=== PATIENT | female | born 2000 | race Caucasian/White ===

== ENCOUNTER 2019-07-06 16:05 | Emergency (ER) | payer BC, OTHER ==
[~2019-07-06] VITALS: Ht 162.6 cm; Wt 60.9 kg
[2019-07-06 16:13] VITALS: BP 120/83
--- NOTE | 2019-07-06 16:41 | PHYS DOC ---
Past History Past Medical History: No Pertinent History (LIZZIE MANCUSO DO) Past Surgical History: No Surgical History (LIZZIE MANCUSO DO) Smoking: Non-smoker Alcohol Use: None Drug Use: None (LIZZIE MANCUSO DO) General Adult EDM: Chief Complaint: PAIN ON URINATION HPI: HPI: 18-year-old female presents with dysuria and increased urinary frequency. Patient has a history of frequent urinary tract infections. She has been having a discomfort for the last nearly 2 weeks. She is also had some intermittent low back pain. It is painful every time she urinates. She denies vaginal discharge or odor. (LIZZIE MANCUSO DO) Review of Systems: Review of Systems: Constitutional: Denies fever or chills Eyes: Denies change in visual acuity HENT: Denies nasal congestion or sore throat Respiratory: Denies cough or shortness of breath Cardiovascular: Denies chest pain or edema GI: Denies abdominal pain, nausea, vomiting, bloody stools or diarrhea : Dysuria Musculoskeletal: Denies back pain or joint pain Integument: Denies rash Neurologic: Denies headache, focal weakness or sensory changes Endocrine: Denies polyuria or polydipsia Lymphatic: Denies swollen glands Psychiatric: Denies depression or anxiety (LIZZIE MANCUSO DO) Heart Score: Risk Factors: Risk Factors: DM, Current or recent (<one month) smoker, HTN, HLP, family history of CAD, obesity. Risk Scores: Score 0 - 3: 2.5% MACE over next 6 weeks - Discharge Home Score 4 - 6: 20.3% MACE over next 6 weeks - Admit for Clinical Observation Score 7 - 10: 72.7% MACE over next 6 weeks - Early Invasive Strategies (LIZZIE MANCUSO DO) Allergies: Allergies: Allergies Coded Allergies Type Severity Reaction Last Updated Verified No Known Drug Allergies 07/01/13 No (LIZZIE MANCUSO DO) Physical Exam: PE: Constitutional: Well developed, well nourished, no acute distress, non-toxic appearance. [] HENT: Normocephalic, atraumatic, bilateral external ears normal, oropharynx moist, no oral exudates, nose normal. [] Eyes: PERRLA, EOMI, conjunctiva normal, no discharge. [] Neck: Normal range of motion, no tenderness, supple, no stridor. [] Cardiovascular: Heart rate regular rhythm, no murmur [] Lungs & Thorax: Bilateral breath sounds clear to auscultation [] Abdomen: Bowel sounds normal, soft, suprapubic tenderness, no masses, no pul satile masses. [] Skin: Warm, dry, no erythema, no rash. [] Back: No tenderness, no CVA tenderness. [] Extremities: No tenderness, no cyanosis, no clubbing, ROM intact, no edema. [] Neurologic: Alert and oriented X 3, normal motor function, normal sensory function, no focal deficits noted. [] Psychologic: Affect normal, judgement normal, mood normal. [] (LIZZIE MANCUSO DO) Current Patient Data: Labs: Laboratory Tests Test 07/06/19 16:23 POC Urine HCG, Qualitative hcg negative (Negative) Vital Signs: Vital Signs Date Time Temp Pulse Resp B/P (MAP) Pulse Ox O2 Delivery O2 Flow Rate FiO2 07/06/19 16:13 98.2 80 16 120/83 (95) 99 Room Air (LIZZIE MANCUSO DO) EKG: EKG: [] (LIZZIE MANCUSO DO) Radiology/Procedures: Radiology/Procedures: [] (LIZZIE MANCUSO DO) Course & Med Decision Making: Course & Med Decision Making Pertinent Labs and Imaging studies reviewed. (See chart for details) The patient's urinalysis is negative for infection. She is not . There is no blood in her urine. [] (LIZZIE MANCUSO DO) Course & Med Decision Making Follow up pending cultures health dept. and labs here with primary. Return if any concerns. Impression: 1. Dysuria (GLEN MOSELEY MD) Dragon Disclaimer: Dragon Disclaimer: This electronic medical record was generated, in whole or in part, using a voice recognition dictation system. (LIZZIE MANCUSO DO) Departure Departure: Disposition: HOME/RESIDENCE PRIOR TO ADM Condition: STABLE Referrals: PCP,NO (PCP) LIZZIE MANCUSO DO July 06, 2019 16:41 GLEN MOSELEY MD July 06, 2019 17:53
[2019-07-06 17:05] LABS: BILIRUBIN,URINE NEG (NEG); CLARITY,URINE CLEAR; GLUCOSE,URINE NEG (NEG)
[2019-07-06 17:06] LABS: NITRITE,URINE NEG (NEG); UROBILINOGEN,URINE 0.2 mg/dL (0.2 mg/dL)
[2019-07-06 17:08] LABS: COLOR,URINE STRAW
[2019-07-07 10:29] LABS: SQUAMOUS EPITHELIAL CELL,UR MOD /LPF
[2019-07-07 10:30] LABS: BACTERIA,URINE FEW /HPF (0-FEW)
== END 2019-07-06 17:54 | disposition home or self-care (01) ==
LOC: ER 16:05
DX: R30.0 Dysuria (principal); M54.5 Low back pain
CPT/HCPCS: 81001; 81025; 87086; 99283

== ENCOUNTER 2020-06-30 20:11 | Emergency (ER) | payer SELFPAY ==
[~2020-06-30] VITALS: Ht 162.6 cm; Wt 60.9 kg
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
[2020-06-30] MEDS ORDERED: HYDROmorphone PF 1 MG/ML DISP.SYRIN IVP ONE ×2 (20:30→21:45)
[2020-06-30] MEDS ORDERED: ONDANSETRON PF 4 MG/2 ML VIAL. IVP ONE (20:30)
[2020-06-30 20:36] LABS: BASO # 0.1 x10^3/uL (0.0-0.2); BASO % 1 % (0-3); EOS # 0.2 x10^3/uL (0.0-0.7); EOS % 1 % (0-3); HEMATOCRIT 40.6 % (36.0-47.0); HEMOGLOBIN 13.6 g/dL (12.0-15.5); LYMPH # 3.7 x10^3/uL (1.0-4.8); LYMPH % 31 % (24-48); MEAN CORPUSCULAR HEMOGLOBIN 32 pg (25-35); MEAN CORPUSCULAR HGB CONC 34 g/dL (31-37); MEAN CORPUSCULAR VOLUME 97 fL (79-100); MONO # 0.8 x10^3/uL (0.0-1.1); MONO % 6 % (0-9); NEUT # 7.3 x10^3uL (1.8-7.7); NEUT % 61 % (31-73); PLATELET COUNT 360 x10^3/uL (140-400); RED BLOOD COUNT 4.21 x10^6/uL (3.50-5.40); RED CELL DISTRIBUTION WIDTH 12.9 % (11.5-14.5)
[2020-06-30 20:46] LABS: ALBUMIN/GLOBULIN RATIO 1.3 (1.0-1.7); CALCIUM 8.6 mg/dL (8.5-10.1); CREATININE 0.9 mg/dL (0.6-1.0); TOTAL BILIRUBIN 0.8 mg/dL (0.2-1.0); TOTAL PROTEIN 7.1 g/dL (6.4-8.2)
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
[2020-06-30 21:59] VITALS: BP 115/68
== END 2020-06-30 22:43 | disposition short-term general hospital (02) ==
LOC: ER 20:11
DX: S82.831A Other fracture of upper and lower end of right fibula, initial encounter for closed fracture (principal); S82.301A Unspecified fracture of lower end of right tibia, initial encounter for closed fracture; W17.89XA Other fall from one level to another, initial encounter; Y93.89 Activity, other specified; Y92.89 Other specified places as the place of occurrence of the external cause; Y99.8 Other external cause status; Z20.822 Contact with and (suspected) exposure to COVID-19
CPT/HCPCS: 29515; 36415; 73564; 73590; 73630; 80053; 85025; 87426; 96374; 96375; 96376; 99285; C9803; J1170; J2405; U0003

== ENCOUNTER → 2020-11-30 | Outpatient (CLI) | payer SELFPAY ==
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
== END ==
LOC: RAD 14:07
PROVIDERS: ATTEND Physician Assistant
DX: L84 Corns and callosities (principal); M79.661 Pain in right lower leg; Z96.698 Presence of other orthopedic joint implants
CPT/HCPCS: 73590

== ENCOUNTER 2021-04-12 17:56 | Emergency (ER) | payer SELFPAY ==
[~2021-04-12] VITALS: Ht 162.6 cm; Wt 60.9 kg
[2021-04-12] MEDS ORDERED: ONDANSETRON PF 4 MG/2 ML VIAL. IVP ONE (18:30)
[2021-04-12] MEDS ORDERED: cloNIDine HCL 0.1 MG TABLET PO ONE (18:30)
[2021-04-12] MEDS ORDERED: IV RINGERS SOLUTION,LACTATED 1,000 ML IV ONE (18:30)
--- NOTE | 2021-04-12 18:31 | PHYS DOC ---
Past History Past Medical History: No Pertinent History (ANA ALEXANDER MD) Past Surgical History: No Surgical History (ANA ALEXANDER MD) Smoking: Non-smoker Alcohol Use: None Drug Use: None (ANA ALEXANDER MD) Adult General Chief Complaint Chief Complaint: DRUG ABUSE HPI HPI The patient is a 20-year-old female who is otherwise healthy. For the last month or more Ms. Galdamez has been buying what she has been told are Percocet pills off the street and taking them daily for recreation. She stopped taking the pills 1.5 days ago and today has been having withdrawal symptoms including sweats, feeling hot and cold, nausea with occasional nonbloody vomiting and dysphoria. She is alert and appropriately interactive and in no acute distress with appropriate vital signs. Patient denies fevers, upper respiratory congestion/rhinorrhea, cough, sore throat, shortness of breath or chest pain of any kind, abdominal pain of any kind, flank pain, midline back pain, dysuria, hematuria, polyuria or oliguria, changes in bowel habits. (ANA ALEXANDER MD) Review of Systems Review of Systems A 12 point review of systems was completed and was negative except where noted in HPI above. (ANA ALEXANDER MD) Allergies Allergies Allergies Coded Allergies Type Severity Reaction Last Updated Verified No Known Drug Allergies 07/01/13 No (ANA ALEXANDER MD) Physical Exam Physical Exam 20-year-old female appearing nontoxic and in no acute distress. Head is normocephalic and atraumatic. Neck is supple and nontender. Oropharynx is moist. Lungs are clear to auscultation at all stations. There is normal S1 and S2 without rubs or gallops and capillary refill is appropriate, less than 2 seconds globally. Abdomen is soft, nontender nondistended. Skin is warm and dry without cyanosis, clubbing or edema. Psychiatrically, the patient demonstrates appropriate mood and affect and is alert. (ANA ALEXANDER MD) EKG EKG [] (ANA ALEXANDER MD) Radiology/Procedures Radiology/Procedures [] (ANA ALEXANDER MD) Heart Score C/O Chest Pain: No Risk Factors: Risk Factors: DM, Current or recent (<one month) smoker, HTN, HLP, family history of CAD, obesity. Risk Scores: Risk Factors: DM, Current or recent (<one month) smoker, HTN, HLP, family history of CAD, obesity. (ANA ALEXANDER MD) Course & Med Decision Making Course & Med Decision Making 20-year-old female presenting for opiate withdrawal symptoms after discontinuing abuse of street narcotics, probably fentanyl. Vital signs and clinical examination are reassuring. Will place IV and give IV fluids and medication for nausea and withdrawal symptoms as noted and will then reevaluate. If she feels better, likely home with medication to manage symptoms to follow-up very closely with primary care. Patient understands and agrees. 1800: Transition of care to Dr. Rich pending symptomatic therapy as noted, then re-evaluation for disposition. (ANA ALEXANDER MD) Dragon Disclaimer Dragon Disclaimer This electronic medical record was generated, in whole or in part, using a voice recognition dictation system. (ANA ALEXANDER MD) Departure Departure: Impression: Primary Impression: Opiate withdrawal Disposition: HOME / SELF CARE / HOMELESS Condition: STABLE Referrals: PCP,NO (PCP) Patient Instructions: Alcohol and Drug Addiction, Finding Treatment, Drug Abuse, FAQs, Narcotic Withdrawal, Opiate Dependence Additional Instructions: Increase fluid hydration. May also use [id number] ibuprofen and or Tylenol for pain or discomfort. Please call [facility] at to seek help for your mental health and/or drug/alcohol abuse. Scripts Ondansetron (ONDANSETRON ODT) 4 Mg Tab.rapdis 1 TAB PO PRN Q6-8HRS PRN for NAUSEA, #16 TAB Prov: JONY RICH DO 04/12/21 ANA ALEXANDER MD Apr 12, 2021 18:31 JONY RICH DO Apr 12, 2021 20:37
[2021-04-12] MEDS ORDERED: ONDA4TAB12 PO (20:37)
[2021-04-12] MEDS ORDERED: LORazepam 1 MG TABLET PO ONE (20:45)
[2021-04-13 00:50] VITALS: BP 99/61
== END 2021-04-12 20:41 | disposition home or self-care (01) ==
LOC: ER 17:56
DX: F11.23 Opioid dependence with withdrawal (principal)
CPT/HCPCS: 96361; 96374; 96375; 99284; J2060; J2405; J7120

== ENCOUNTER 2021-04-26 14:23 | Emergency (ER) | payer SELFPAY ==
[~2021-04-26] VITALS: Ht 157.5 cm; Wt 59.0 kg
[~2021-04-26 14:23] MED LIST: ONDA4TAB12 PO
[2021-04-26 14:30] VITALS: BP 99/58
[2021-04-26] MEDS ORDERED: DIPHTH,PERTUSS(ACELL),TET TOX 0.5 ML DISP.SYRIN. VAX IM ONE (16:00)
[2021-04-26] MEDS ORDERED: AMOX1TAB11 PO (16:02)
--- NOTE | 2021-04-26 16:02 | PHYS DOC ---
Past History Past Medical History: No Pertinent History (KRISTEL JENNINGS APRN) Past Surgical History: Other Additional Past Surgical Histo: ORIF right leg. (KRISTEL JENNINGS APRN) Smoking: Non-smoker Alcohol Use: None Drug Use: None (KRISTEL JENNINGS APRN) General Adult EDM: Chief Complaint: ANIMAL BITE HPI: HPI: Patient is a 20-year-old female presents after a dog bite. Patient states that she was petting her friend's dog when he bit her right hand. Patient has 2 puncture wounds and laceration to her right hand. Bleeding is controlled. Unknown status of dog's vaccination. Police were contacted. Patient denies taking anything for pain prior to arrival. Pain is /10. Tetanus is not up-to-date. Denies medical history. (KRISTEL JENNINGS APRN) Review of Systems: Review of Systems: Constitutional: Denies fever or chills Eyes: Denies change in visual acuity HENT: Denies nasal congestion or sore throat Respiratory: Denies cough or shortness of breath Cardiovascular: Denies chest pain or edema GI: Denies abdominal pain, nausea, vomiting, bloody stools or diarrhea : Denies dysuria Musculoskeletal: Denies back pain or joint pain Integument: Denies rash Neurologic: Denies headache, focal weakness or sensory changes Endocrine: Denies polyuria or polydipsia Lymphatic: Denies swollen glands Psychiatric: Denies depression or anxiety (KRISTEL JENNINGS APRN) Current Medications: Current Meds: Current Medications Medications (Trade) Dose Ordered Sig/Joseph Start Time Stop Time Status Last Admin Dose Admin Diphtheria/ Tetanus/Acell Pertussis (Boostrix) 0.5 ml ONCE ONCE 04/26/21 16:00 04/26/21 16:01 (KRISTEL JENNINGS APRN) Allergies: Allergies: Allergies Coded Allergies Type Severity Reaction Last Updated Verified No Known Drug Allergies 07/01/13 No (KRISTEL JENNINGS APRN) Physical Exam: PE: Constitutional: Well developed, well nourished, no acute distress, non-toxic appearance. [] HENT: Normocephalic, atraumatic, bilateral external ears normal, oropharynx moist, no oral exudates, nose normal. [] Eyes: PERRLA, EOMI, conjunctiva normal, no discharge. [] Neck: Normal range of motion, no tenderness, supple, no stridor. [] Cardiovascular:Heart rate regular rhythm, no murmur [] Lungs & Thorax: Bilateral breath sounds clear to auscultation [] Abdomen: Bowel sounds normal, soft, no tenderness, no masses, no pulsatile masses. [] Skin: 1 and half centimeter laceration to top of right hand, 2 puncture wounds, tenderness to right hand Back: No tenderness, no CVA tenderness. [] Extremities: No tenderness, no cyanosis, no clubbing, ROM intact, no edema. [] Neurologic: Alert and oriented X 3, normal motor function, normal sensory function, no focal deficits noted. [] Psychologic: Affect normal, judgement normal, mood normal. [] (KRISTEL JENNINGS APRN) Current Patient Data: Vital Signs: Vital Signs Date Time Temp Pulse Resp B/P (MAP) Pulse Ox O2 Delivery O2 Flow Rate FiO2 04/26/21 14:30 97.8 71 16 99/58 (72) 97 (KRISTEL JENNINGS APRN) EKG: EKG: [] (KRISTEL JENNINGS APRN) Radiology/Procedures: Radiology/Procedures: [] (KRISTEL JENNINGS APRN) Heart Score: C/O Chest Pain: No Risk Factors: Risk Factors: DM, Current or recent (<one month) smoker, HTN, HLP, family history of CAD, obesity. Risk Scores: Score 0 - 3: 2.5% MACE over next 6 weeks - Discharge Home Score 4 - 6: 20.3% MACE over next 6 weeks - Admit for Clinical Observation Score 7 - 10: 72.7% MACE over next 6 weeks - Early Invasive Strategies (KRISTEL JENNINGS APRN) Course & Med Decision Making: Course & Med Decision Making Pertinent Labs and Imaging studies reviewed. (See chart for details) [] 20-year-old female presents after being bit by her friend's dog on the right hand. Patient has a 1 and half centimeter laceration along with 2 puncture wounds. Full range of motion and sensation is intact. Bleeding is controlled. Wound was irrigated by RN. Police were contacted and report was filed. Patient is unsure of the dog's vaccination status. Patient refusing anything for pain at this time. Right hand x-ray ordered to rule out fracture or foreign body. X-ray is unremarkable. Tetanus was updated. Wound was covered with gauze. Patient started on Augmentin to help prevent infection. Ibuprofen and Tylenol at home for discomfort. Discussed return precautions. Patient reports understanding of discharge instructions. (KRISTEL JENNINGS APRN) Patrick Disclaimer: Patrick Disclaimer: This electronic medical record was generated, in whole or in part, using a voice recognition dictation system. (KRISTEL JENNINGS APRN) Attending Co-Sign The patient was seen and interviewed as well as examined at the bedside. The chart was reviewed. The case was discussed. Agree with the plan of care. (LIZZIE MANCUSO DO) Departure Departure: Impression: Primary Impression: Dog bite Qualified Codes: W54.0XXA - Bitten by dog, initial encounter Disposition: HOME / SELF CARE / HOMELESS Condition: STABLE Referrals: PCP,NO (PCP) Patient Instructions: Animal Bite, [id number] Additional Instructions: You are seen in the emergency room for a dog bite. Your wound was cleaned, tetanus was updated, x-ray obtained to rule out fracture and foreign body in your hand. Take ibuprofen and Tylenol at home. Keep the wound clean and dry and covered. Avoid soaking your hand in water. I am sending you home with a prescription for Augmentin to help prevent infection. Please return to the emergency room with worsening symptoms or concerns. EMERGENCY DEPARTMENT GENERAL DISCHARGE INSTRUCTIONS Thank you for coming to [facility] (ED) today and trusting us with you care. We trust that you had a positivie experience in our Emergency Department. If you wish to speak to the department management, you may call the director at [phone]. YOUR FOLLOW UP INSTRUCTIONS ARE FOLLOWS: 1. Do you have a private Doctor? If you do not have a private doctor, please ask for a resource list of physicians or clinics that may be able to assist you with follow up care. 2. The Emergency Physician has interpreted your x-rays. The X-Ray specialist will also review them. If there is a change in the findings, you will be notified in 48 hours when at all possible. 3. A lab test or culture has been done, your results will be reviewed and you will be notified if you need a change in treatment. ADDITIONAL INSTRUCTIONS AND INFORMATION: 1. Your care today has been supervised by a physician who is specially trained in emergency care. Many problems require more than one evaluation for a complete diagnosis and treatment. We recommend that you schedule your follow up appointment as recomme nded to ensure complete treatment of you illness or injury. If you are unable to obtain follow up care and continue to have a problem, or if your condition worsens, we recommend that you return to the ED. 2. We are not able to safely determine your condition over the phone nor are we able to give sound medical advice over the phone. For these safety reasons, if you call for medical advice we will ask you to come to the ED for further evaluation. 3. If you have any questions regarding these discharge instructions please call the ED at [phone]. SAFETY INFORMATION: In the interest of safety, wellness, and injury prevention; we encourage you to wear your sealbelt, if you smoke; quite smoking, and we encourage family to use a protective helmet for bicycling and other sporting events that present an increased risk for head injury. IF YOUR SYMPTOMS WORSEN OR NEW SYMPTOMS DEVELOP, OR YOU HAVE CONCERNS ABOUT YOUR CONDITION; OR IF YOUR CONDITION WORSENS WHILE YOU ARE WAITING FOR YOUR FOLLOW UP APPOINTMENT; EITHER CONTACT YOUR PRIMARY CARE DOCTOR, THE PHYSICIAN WHOSE NAME AND NUMBER YOU WERE GIVEN, OR RETURN TO THE ED IMMEDIATELY. Scripts Amoxicillin/Potassium Clav (AMOX TR-K CLV 875-125 MG TAB) 1 Each Tablet 1 TAB PO BID for bite for 7 Days, #14 TAB Prov: KRISTEL JENNINGS APRN 04/26/21 KRISTEL JENNINGS APRN Apr 26, 2021 16:02 LIZZIE MANCUSO DO Apr 27, 2021 19:50
--- NOTE | 2021-04-26 16:21 | RAD ---
Exam Date: 04/26/2021 3:51 PM XR HAND_RIGHT 3 VIEWS Indication: Reason: dog bite / Spl. Instructions: / History: . FINDINGS/ IMPRESSION: No radiopaque foreign body is identified. No acute fracture or dislocation. Alignment and joint spaces are maintained. The soft tissues are w ithin normal limits. Electronically signed by: Davonte Salvador MD (04/26/2021 4:19 PM) [facility]
== END 2021-04-26 16:45 | disposition home or self-care (01) ==
LOC: ER 14:23
DX: S61.411A Laceration without foreign body of right hand, initial encounter (principal); S61.431A Puncture wound without foreign body of right hand, initial encounter; W54.0XXA Bitten by dog, initial encounter; Y93.89 Activity, other specified; Y92.89 Other specified places as the place of occurrence of the external cause; Y99.8 Other external cause status
CPT/HCPCS: 73130; 90471; 90715; 99283

== ENCOUNTER 2021-05-17 23:32 | Emergency (ER) | payer OTHER ==
[~2021-05-17] VITALS: Ht 157.5 cm; Wt 59.0 kg
[~2021-05-17 23:32] MED LIST changes: +AMOX1TAB11 PO
--- NOTE | 2021-05-17 23:43 | PHYS DOC ---
Past History Past Medical History: No Pertinent History, Anxiety Past Surgical History: Other Additional Past Surgical Histo: ORIF right leg. Smoking: Non-smoker Alcohol Use: None Drug Use: None General Adult EDM: Chief Complaint: SEIZURE HPI: HPI: ",, I was feeling weak today.. and went to plug in a outlet.. and I guess had seizure.. and I hit my head.." Patient is a 20 year old female who presents with seizure like activity . Patient denies previous history of seizure disorder. Patient. a syncope episode and struck the back of her head. Pt. admit to use of street percocet. Patient does smoke tobacco and marijuana. Did receive 5 mg of Versed in route for seizure-like activity. Patient currently not postictal. No recent travel. No patient specific ill contacts. No history of depression. Review of Systems: Review of Systems: Constitutional: Denies fever or chills Eyes: Denies change in visual acuity HENT: Denies nasal congestion or sore throat Respiratory: Denies cough or shortness of breath Cardiovascular: Denies chest pain or edema GI: Denies abdominal pain, nausea, vomiting, bloody stools or diarrhea : Denies dysuria Musculoskeletal: Denies back pain or joint pain Integument: Denies rash Neurologic: Denies headache, focal weakness or sensory changes. Complains of seizure-like activity- tonic clonic Endocrine: Denies polyuria or polydipsia Lymphatic: Denies swollen glands Psychiatric: Denies depression or anxiety Family History: Family History: Noncontributory Current Medications: Current Meds: See nursing for home meds Allergies: Allergies: Allergies Coded Allergies Type Severity Reaction Last Updated Verified No Known Drug Allergies 07/01/13 No Physical Exam: PE: Constitutional: no acute distress, non-toxic appearance. [] HENT: Normocephalic, atraumatic, bilateral external ears normal, oropharynx moist, no oral exudates, nose normal. [] Eyes: PERRLA, EOMI, conjunctiva normal, no discharge. [] Neck: Normal range of motion, no tenderness, supple, no stridor. [] Cardiovascular:Heart rate regular rhythm, no murmur [] Lungs & Thorax: Bilateral breath sounds equal apex with scattered wheezes auscultation [] Abdomen: Bowel sounds normal, soft, no tenderness, no masses, no pulsatile masses. [] Skin: Warm, dry, no erythema, no rash. [] Back: No tenderness, no CVA tenderness. [] Extremities: No tenderness, no cyanosis, no clubbing, ROM intact, no edema. [] Neurologic: Alert and oriented X 3, normal motor function, normal sensory funct ion, no focal deficits noted. [] Psychologic: Affect normal, judgement normal, mood normal. [] EKG: EKG: My interpretation EKG shows a sinus rhythm at 63 bpm. Has some nonspecific contour findings and anterior septal region. But no findings acute STEMI of contralateral changes. Time of EKG is 00 8 minutes Radiology/Procedures: Radiology/Procedures: Pt. refusing all x-rays. Does not want to take out her ear rings or nasal studs. [] Heart Score: C/O Chest Pain: N/A HEART Score for Chest Pain: HEART Score for Chest Pain Response (Comments) Value History Slighlty/Non-Suspicious 0 ECG Normal 0 Age < 45 0 Risk Factors 1 or 2 Risk Factors 1 Troponin < Normal Limit 0 Total 1 Risk Factors: Risk Factors: DM, Current or recent (<one month) smoker, HTN, HLP, family history of CAD, obesity. Risk Scores: Score 0 - 3: 2.5% MACE over next 6 weeks - Discharge Home Score 4 - 6: 20.3% MACE over next 6 weeks - Admit for Clinical Observation Score 7 - 10: 72.7% MACE over next 6 weeks - Early Invasive Strategies Course & Med Decision Making: Course & Med Decision Making Pertinent Labs and Imaging studies reviewed. (See chart for details) Patient refused CT of head-did not want to take the rings out nose and ears. Tonic clonic seizure-unusual to have a normal CK Patient avoid driving car other hazardous activity. Follow-up primary care. Avoid illicit drug use. Impression: 1. Seizure-like activity 2. History of polysubstance abuse 3. Head Injury 4, CK = normal 144 [] Dragon Disclaimer: Dragon Disclaimer: This electronic medical record was generated, in whole or in part, using a voice recognition dictation system. Departure Departure: Referrals: PCP,NO (PCP) [place] Disclaimer This chart was dictated in whole or in part using Voice Recognition software in a busy, high-work load, and often noisy Emergency Department environment. It may contain unintended and wholly unrecognized errors or omissions. Dragon Disclaimer This chart was dictated in whole or in part using Voice Recognition software in a busy, high-work load, and often noisy Emergency Department environment. It may contain unintended and wholly unrecognized errors or omissions. GLEN MOSELEY MD May 17, 2021 23:43
[2021-05-18] MEDS: IV RINGERS SOLUTION,LACTATED 1,000 ML IV SCH (00:41)
[2021-05-18 00:45] LABS: BASO # 0.1 x10^3/uL (0.0-0.2); BASO % 1 % (0-3); EOS # 0.1 x10^3/uL (0.0-0.7); EOS % 1 % (0-3); HEMATOCRIT 39.2 % (36.0-47.0); HEMOGLOBIN 13.2 g/dL (12.0-15.5); LYMPH # 1.6 x10^3/uL (1.0-4.8); LYMPH % 27 % (24-48); MEAN CORPUSCULAR HEMOGLOBIN 32 pg (25-35); MEAN CORPUSCULAR HGB CONC 34 g/dL (31-37); MEAN CORPUSCULAR VOLUME 95 fL (79-100); MONO # 0.5 x10^3/uL (0.0-1.1); MONO % 8 % (0-9); NEUT # 3.8 x10^3uL (1.8-7.7); NEUT % 63 % (31-73); PLATELET COUNT 239 x10^3/uL (140-400); RED BLOOD COUNT 4.14 x10^6/uL (3.50-5.40); RED CELL DISTRIBUTION WIDTH 12.3 % (11.5-14.5)
[2021-05-18 00:53] LABS: CALCIUM 8.6 mg/dL (8.5-10.1); CREATININE 0.7 mg/dL (0.6-1.0); GFR 104.6
[2021-05-18 01:06] LABS: ALBUMIN 3.9 g/dL (3.4-5.0); DIRECT BILIRUBIN 0.1 mg/dL (0.0-0.2); MAGNESIUM 2.2 mg/dL (1.8-2.4); TOTAL BILIRUBIN 0.5 mg/dL (0.2-1.0); TOTAL PROTEIN 6.1 g/dL (6.4-8.2)
[2021-05-18 01:40] LABS: INFLUENZA A PATIENT NEGATIVE (NEGATIVE); INFLUENZA B PATIENT NEGATIVE (NEGATIVE)
[2021-05-18 01:47] LABS: BARBITURATES NEG (NEG); BENZODIAZEPINES POS (NEG); CANNABINOIDS POS (NEG); COCAINE NEG (NEG); METHADONE NEG (NEG); OPIATES NEG (NEG); PHENCYCLIDINE NEG (NEG)
[2021-05-18 01:48] LABS: AMPHETAMINE/METHAMPHETAMINE NEG (NEG)
--- NOTE | 2021-05-18 01:54 | EKG ---
[address] [address] Test Date: 2021-05-18 Test Time: 00:08:51 Pat Name: ANH BARBOSA Department: Room: Gender: F Quarrying Specialist: : [id number] Requested By: GLEN MOSELEY Order Number: [id number] Reading MD: Lex Tinajero Measurements Intervals [place] Rate: 63 P: 32 AK: 168 QRS: 74 QRSD: 80 T: 52 QT: 404 QTc: 416 Interpretive Statements SINUS RHYTHM MILD NON SPECIFIC ST CHANGES Electronically Signed On 05-20-2021 15:12:21 CDT by Lex Tinajero
[2021-05-18 01:59] LABS: BACTERIA,URINE 0 /HPF (0-FEW); CLARITY,URINE HAZY; COLOR,URINE YELLOW; GLUCOSE,URINE NEG (NEG); NITRITE,URINE NEG (NEG); SQUAMOUS EPITHELIAL CELL,UR MANY /LPF; UROBILINOGEN,URINE 0.2 mg/dL (0.2 mg/dL); WBC,URINE 0 /HPF (0-4)
[2021-05-18 02:06] VITALS: BP 121/78
== END 2021-05-18 02:23 | disposition home or self-care (01) ==
LOC: ER 23:32
DX: S09.90XA Unspecified injury of head, initial encounter (principal); R56.9 Unspecified convulsions; F19.10 Other psychoactive substance abuse, uncomplicated; F41.9 Anxiety disorder, unspecified; W22.8XXA Striking against or struck by other objects, initial encounter; Y93.89 Activity, other specified; Y92.89 Other specified places as the place of occurrence of the external cause; Y99.8 Other external cause status
CPT/HCPCS: 36415; 80048; 80076; 80307; 81001; 81025; 82550; 83690; 83735; 83880; 84443; 84484; 85025; 85379; 85610; 85730; 87428; 93005; 96360; 99284; J7120